=== PATIENT | female | born 1970 | race African-American/Black ===

== ENCOUNTER 2018-01-09 17:10 | Inpatient (IN) | payer SELFPAY ==
[~2018-01-09] VITALS: Ht 157.5 cm; Wt 84.8 kg
[2018-01-09 21:22] VITALS: BP 115/72; PULSE 63; RESP 18; TEMP 97; O2SAT 97
[2018-01-10 06:06] VITALS: BP 117/61; PULSE 67; RESP 18; TEMP 97.8; O2SAT 96
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
[2018-01-10] MEDS ORDERED: RESP: ALBUTEROL 2.5 MG/IPRATROPIUM 0.5 MG NEB (PRN) NEB (14:00)
[2018-01-10] MEDS ORDERED: ALUMINUM/MAGNESIUM/SIMETH 30 ML CUP PO PRN (14:30)
[2018-01-10] MEDS ORDERED: ACETAMINOPHEN 325 MG TAB PO PRN (14:30)
[2018-01-10] MEDS ORDERED: LORazepam 2 MG/ML VIAL IM PRN (14:30)
[2018-01-10] MEDS: buPROPion HCL 100 MG SUSTAINED RELEASE TAB PO SCH ×2 (14:30→21:33)
[2018-01-10] MEDS ORDERED: MAGNESIUM HYDROXIDE SUSP 30 ML CUP PO PRN (14:30)
[2018-01-10] MEDS: OLANZapine 5 MG TAB PO SCH ×2 (14:54→21:00)
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
[2018-01-10 17:34] VITALS: BP 95/60; PULSE 65; RESP 17; TEMP 96.8; O2SAT 99
[2018-01-11 06:05] VITALS: BP 121/82; PULSE 70; RESP 18; TEMP 96.5; O2SAT 99
[2018-01-11] MEDS: OLANZapine 5 MG TAB PO SCH ×2 (08:29→20:26)
[2018-01-11] MEDS: NICOTINE 21 MG/24 HR PATCH T-DERMAL SCH (08:29)
[2018-01-11] MEDS: REMOVE OLD PATCH T-DERMAL SCH (08:29)
[2018-01-11] MEDS: buPROPion HCL 150 MG SUSTAINED RELEASE TAB PO SCH ×3 (08:29→20:33)
[2018-01-11 09:06] LABS: BICARBONATE 26.6 MEQ/L (21.0-32.0); BLOOD UREA NITROGEN 12 MG/DL (7-18); CALCIUM 9.3 MG/DL (8.5-10.1); CHLORIDE 107 MEQ/L (98-107); CREATININE 1.14 MG/DL (0.50-1.00); GLOMERULAR FILTRATION RATE 62 ML/MIN (>89); GLUCOSE,RANDOM 103 MG/DL (74-106); SODIUM (NA) 139 MEQ/L (136-145)
[2018-01-11 09:07] LABS: CHOLESTEROL 148 MG/DL (120-200)
[2018-01-11 09:16] LABS: CHOLESTEROL/ HDL RATIO 4.45 RATIO; HDL CHOLESTEROL 33.2 MG/DL (40.0-60.0); LDL CHOLESTEROL 100 MG/DL (0-99); TRIGLYCERIDES 75 MG/DL (42-150)
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
[2018-01-11 15:16] LABS: HEMOGLOBIN A1C 5.1 % (4.3-6.0)
--- NOTE | 2018-01-11 16:24 | RADRPT ---
EXAM DATE/TIME: 01/11/2018 15:01 [facility] COMPARISON: No previous studies available for comparison. INDICATIONS : Left shoulder pain, unknown injury. MEDICAL HISTORY : None. SURGICAL HISTORY : None. ENCOUNTER: Initial ACUITY: 1 day PAIN SCORE: 10/10 LOCATION: Left shoulder. FINDINGS: Two view examination of the left shoulder demonstrates no evidence of fracture or dislocation. The g lenohumeral and acromioclavicular joints are maintained. Bony mineralization is normal. CONCLUSION: No acute disease. Jonny Gant MD on January 11, 2018 at 16:21 Board Certified Radiologist. This report was verified electronically.
--- NOTE | 2018-01-11 16:33 | RADRPT ---
EXAM DATE/TIME: 01/11/2018 15:02 [facility] COMPARISON: No previous studies available for comparison. INDICATIONS : Right shoulder pain, unknown injury. MEDICAL HISTORY : None. SURGICAL HISTORY : None. ENCOUNTER: Initial ACUITY: 1 day PAIN SCORE: 10/10 LOCATION: Right shoulder. FINDINGS: Two view examination of the right shoulder demonstrates no evidence of fracture or dislocation. The glenohumeral and acromioclavicular joints are maintained. Bony mineralization is normal. CONCLUSION: No acute disease. Jonny Gant MD on January 11, 2018 at 16:30 Board Certified Radiologist. This report was verified electronically.
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
[2018-01-11 18:34] LABS: BACTERIA, URINE OCC /hpf; BILIRUBIN, URINE NEG (NEG); BLOOD, URINE NEG (NEG); GLUCOSE,URINE NEG (NEG); KETONE, URINE NEG (NEG); NITRITE,URINE NEG (NEG); SQUAMOUS EPITHELIAL CELL URINE 5 /hpf (0-5); URINE COLOR LIGHT-YELLOW (YELLW/STRAW); URINE LEUKOCYTE ESTERASE NEG (NEG)
--- NOTE | 2018-01-11 19:47 | EKG ---
Date Performed: 01/10/2018 Time Performed: 16:09:31 PTAGE: 47 years EKG: SINUS BRADYCARDIA NONSPECIFIC T-WAVE CHANGES PRESENT BORDERLINE ECG NO PREVIOUS TRACING DOCTOR: Andi Nicholas Interpretating Date/Time 01/11/2018 19:46:36
[2018-01-11] MEDS ORDERED: OLANZapine IM 10 MG VIAL IM ONE (21:25)
[2018-01-12 06:13] VITALS: BP 118/65; PULSE 75; RESP 18; TEMP 96; O2SAT 96
[2018-01-12] MEDS: OLANZapine 5 MG TAB PO SCH (08:43)
[2018-01-12 08:56] LABS: BICARBONATE 27.8 MEQ/L (21.0-32.0); CALCIUM 9.6 MG/DL (8.5-10.1); CREATININE 1.16 MG/DL (0.50-1.00)
[2018-01-12] MEDS: NICOTINE 21 MG/24 HR PATCH T-DERMAL SCH (09:00)
[2018-01-12] MEDS: REMOVE OLD PATCH T-DERMAL SCH (09:00)
--- NOTE | 2018-01-12 10:30 | HHI.PR ---
Subjective Remarks Follow up on patient with asthma, suprapubic discomfort. Patient seen and examined. Patient reports that she feels well today. She continues to have some lower abdominal discomfort but it is improved. She denies any fever or chills. She denies any chest pain or shortness of breath. Denies any nausea or vomiting. She is tolerating oral diet. Discussed with patient her slightly other creatinine level. She denies any known history of kidney disease. She denies any history of diabetes. She does complain of some lower back pain when sleeping at night and is requesting NSAIDs. I discussed with her avoidance of NSAIDs with impaired kidney function. Patient is requesting vitamin D level drawn due to strong FMHX of osteopenia/osteoporosis. Objective Vitals Vital Signs Date Time Temp Pulse Resp B/P (MAP) Pulse Ox O2 Delivery O2 Flow Rate FiO2 01/12/18 06:13 96.0 75 18 118/65 (82) 96 Result Diagram: 01/12/18 0748 Imaging Last Impressions Shoulder X-Ray 01/11/18 0000 Signed Impressions: Service Date/Time: December 15:01 - CONCLUSION: No acute disease. Jonny Gant MD Objective Remarks GENERAL: This is a well-nourished, well-developed female patient, in no apparent distress. Awake and alert. Witnessed ambulating in the unit. Appears comfortable. SKIN: Cool and dry. No rash. HEAD: Atraumatic. Normocephalic. EYES: Pupils equal round and reactive. Extraocular motions intact. No scleral icterus. No injection or drainage. ENT: Nose without bleeding or purulent drainage. Airway patent. Dry mucus membranes NECK: Trachea midline. Supple. No CARDIOVASCULAR: Regular rate and rhythm without murmurs, gallops, or rubs. RESPIRATORY: Clear to auscultation. Breath sounds equal bilaterally. No wheezes , rales, or rhonchi. GASTROINTESTINAL: Abdomen soft, nondistended. No guarding. Mild suprapubic tenderness to palpation. MUSCULOSKELETAL: Extremities without clubbing or cyanosis. Trace bilateral lower extremity edema. (+)Mild tenderness to palpation over bilateral shoulder/ upper arm with decreased ROM. Neg impingement signs. NEUROLOGICAL: Awake and alert. Cranial nerves II through XII grossly intact. Motor and sensory grossly within normal limits. No focal neurologic finding appreciated. Normal speech. PSYCHIATRIC: Calm and cooperative. Medications and IVs Current Medications Medications (Trade) Dose Ordered Sig/Dale Route Start Time Stop Time Status Last Admin (Duoneb Neb) 1 ampule Q2HR NEB PRN NEB 01/10/18 14:00 (Ativan) 1 mg Q6H PRN PO 01/10/18 14:30 (Ativan Inj) 1 mg Q6H PRN IM 01/10/18 14:30 (Benadryl) 50 mg HS PRN PO 01/10/18 21:00 (Tylenol) 650 mg Q4H PRN PO 01/10/18 14:30 (Milk Of Magnesia Liq) 30 ml DAILY PRN PO 01/10/18 14:30 (Mag-Al Plus Susp Liq) 30 ml Q6H PRN PO 01/10/18 14:30 (Habitrol 21 Mg Patch.24 Hr) 1 patch DAILY T-DERMAL 01/11/18 09:00 Miscellaneous Information 1 DAILY T-DERMAL 01/11/18 09:00 (ZyPREXA) 5 mg Q12HR PO 01/10/18 14:30 01/12/18 08:43 (Wellbutrin Sr) 150 mg BID PO 01/11/18 09:00 01/11/18 20:26 A/P Assessment and Plan 47-year-old -[place] female with a past medical history significant for asthma, hypothyroidism, schizoaffective disorder, depression and anxiety who was transferred to [facility] inpatient psychiatric unit from another facility for paranoia, disorganized thoughts and delusional thinking. Hospitalist services have been consulted to assist in medical management of medical condition. Schizoaffective disorder Anxiety Depression, symptomatic -Management per psychiatric team Asthma, not in acute exacerbation Nonsmoker -Duonebs prn -monitor Nausea Suprapubic discomfort Dysuria Patient reports improvement -UA unremarkable -monitor Hypothyroidism -TSH 1.530 off of thyroid replacement C/O dizziness upon standing -suspect orthostatic hypotension -orthostatic BP measurements ordered, not done - requested nursing staff please complete and record in EMR -Discussed with patient slow transitions -fall precautions Bilateral shoulder/upper arm pain s/p fall -PT eval/tx -discharged from PT without any needs identified -imaging studies bilateral shoulders negative for any acute fracture or other osseous abnormality, images reviewed by me ?JOHN on ?CKD -no lab for comparison -suspect JOHN due to dehydration/poor oral intake -creatinine 1.14 -> 1.16 -patient is not diabetic, A1c 5.1 -continue to encourage fluids -avoid nephrotoxic agents, avoidance of NSAIDS -Renal US ordered, urine Na and urine Cr -monitor renal indices FMHX of osteoporosis -Obtain vitamin D level Back pain -Avoidance of NSAIDs secondary to impaired kidney fxn -Offered tramadol but patient declined due to dizziness -Tylenol as needed DVT prophylaxis -patient is ambulatory Roz Mednoza Jan 12, 2018 10:30
[2018-01-12] MEDS ORDERED: ACETAMINOPHEN 325 MG TAB PO PRN (11:00)
[2018-01-12 11:30] VITALS: BP_SYST 113; BP_SYST 116; BP_SYST 120; BP_DIAS 64; BP_DIAS 66; BP_DIAS 72; PULSE 63; PULSE 70; PULSE 72
--- NOTE | 2018-01-12 11:41 | RADRPT ---
EXAM DATE/TIME: 01/12/2018 10:11 [facility] COMPARISON: No previous studies available for comparison. INDICATIONS : Increased BUN and Creatinine. MEDICAL HISTORY : Ulcers. Gastroesophageal reflux disease. Schizoaffective disorder. SURGICAL HISTORY : None. ENCOUNTER: Initial ACUITY: 1 day PAIN SCORE: 0/10 LOCATION: Bilateral flank MEASUREMENTS: RIGHT KIDNEY: 9.6 x 4.8 x 4.5 cm LEFT KIDNEY: 9.2 x 5.5 x 5.6 cm FINDINGS: RIGHT KIDNEY: Renal cortex is normal in thickness and echotexture. No hydronephrosis, stone, or mass. LEFT KIDNEY: Renal cortex is normal in thickness and echotexture. No hydronephrosis, stone, or mass. BLADDER: Within normal limits given the degree of distension. CONCLUSION: Normal renal ultrasound Kashif Montes De Oca MD FACR on January 12, 2018 at 11:38 Board Certified Radiologist. This report was verified electronically.
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
[2018-01-12] MEDS: LORazepam 1 MG TAB PO PRN (18:00)
[2018-01-12 18:17] VITALS: BP 113/66; PULSE 63; RESP 14; TEMP 97.9; O2SAT 96
[2018-01-12] MEDS: OLANZapine 10 MG TAB PO SCH (20:47)
[2018-01-12] MEDS: buPROPion HCL 150 MG SUSTAINED RELEASE TAB PO SCH (20:47)
[2018-01-12] MEDS: diphenhydrAMINE HCL 50 MG CAP PO PRN (20:48)
[2018-01-13 06:00] VITALS: BP 102/61; PULSE 63; RESP 18; TEMP 98.6; O2SAT 97
[2018-01-13] MEDS: buPROPion HCL 150 MG SUSTAINED RELEASE TAB PO SCH ×2 (09:00→20:09)
[2018-01-13] MEDS: REMOVE OLD PATCH T-DERMAL SCH (09:00)
[2018-01-13] MEDS: NICOTINE 21 MG/24 HR PATCH T-DERMAL SCH (09:00)
[2018-01-13] MEDS ORDERED: OLANZapine 5 MG TAB PO SCH (09:00)
--- NOTE | 2018-01-13 09:29 | HHI.PYPN ---
Subjective Remarks The patient was seen today for psychiatric reevaluation along with Ms. Alyson Bertrand, the patient continues to be delusional, stating that she is and she needs to have a test and ultrasound today, she says that she has a 7 month and even though the test has been negative she is convinced she is . She is also very paranoid, and stating that nurses has been talking about her boyfriend. However, she is calm and cooperative, at times pleasant. She denies suicidal and was ideation, she denies peaceful and auditory hallucinations. She has been compliant with her medications, no significant side effects reported. As per nurse report, the patient sometimes become kind of disorganized, is stating that she wants to speak with her voice at 3 AM in the morning. Review of Systems Except as stated in HPI: all other systems reviewed are Neg Mental Status Examination Appearance: Appropriate Consciousness: Alert Orientation: Person, Place, Date/Time Motor Activity: Normal gait Speech: Unremarkable Language: Adequate Fund of Knowledge: Inadequate Attention and Concentration: Inadequate Memory: Impaired (surrounding events prior admission) Mood: Other ("weird") Affect: Blunt Thought Process & Associations: Disorganized (at times) Thought Content: Hallucinations, Other (concrete) Hallucination Type: Auditory Delusion Type: Paranoid, Somatic (of being ) Suicidal Ideation: No Suicidal Plan: No Suicidal Intention: No Homicidal Ideation: No Homicidal Plan: No Homicidal Intention: No Insight: Poor Judgment: Poor Results Labs Test 01/13/18 08:35 Vitals/IOs Vital Signs Date Time Temp Pulse Resp B/P (MAP) Pulse Ox O2 Delivery O2 Flow Rate FiO2 01/13/18 06:00 98.6 63 18 102/61 (75) 97 Intake and Output 01/13/18 01/13/18 01/14/18 08:00 16:00 00:00 Intake Total 240 ml Balance 240 ml Assessment & Plan Problem List: (1) Schizoaffective disorder ICD Codes: F25.9 - Schizoaffective disorder, unspecified Assessment & Plan: Patient continues to be delusional, disorganized, very paranoid. We will increase the olanzapine to 10 mg twice daily for psychosis. Assessment & Plan Estimated LOS: days Justification for Cont. Inpt. Patient is acutely psychotic Andrew Deutsch MD Jan 13, 2018 09:29
--- NOTE | 2018-01-13 09:37 | HHI.PR ---
Subjective Remarks Follow up on patient with asthma, suprapubic discomfort. Patient seen and examined. She is asking if she will be discharged today. She denies any new medical complaints. She denies any fever or chills. Denies any chest pain or dyspnea. Denies any N/V or abdominal pain. Objective Vitals Vital Signs Date Time Temp Pulse Resp B/P (MAP) Pulse Ox O2 Delivery O2 Flow Rate FiO2 01/13/18 06:00 98.6 63 18 102/61 (75) 97 01/12/18 18:17 97.9 63 14 113/66 (82) 96 01/12/18 11:30 70 116/64 (81) 01/12/18 11:30 63 113/66 (82) 01/12/18 11:30 72 120/72 (88) I/O 01/12/18 01/12/18 01/12/18 01/13/18 01/13/18 01/13/18 07:00 15:00 23:00 07:00 15:00 23:00 Intake Total 240 ml 360 ml 240 ml Balance 240 ml 360 ml 240 ml Intake Oral 240 ml 360 ml 240 ml # Voids 2 Result Diagram: 01/12/18 0748 Imaging Last Impressions Renal Ultrasound 01/12/18 0000 Signed Impressions: Service Date/Time: Friday, January 12, 2018 10:11 - CONCLUSION: Normal renal ultrasound Kashif Montes De Oca MD FACR Shoulder X-Ray 01/11/18 0000 Signed Impressions: Service Date/Time: December 15:01 - CONCLUSION: No acute disease. Jonny Gant MD Objective Remarks GENERAL: This is a well-nourished, well-developed female patient, in no apparent distress. Awake and alert. Witnessed ambulating in the unit. SKIN: Cool and dry. No rash. HEAD: Atraumatic. Normocephalic. EYES: Pupils equal round and reactive. Extraocular motions intact. No scleral icterus. No injection or drainage. ENT: Nose without bleeding or purulent drainage. Airway patent. MMM. NECK: Trachea midline. CARDIOVASCULAR: Regular rate and rhythm without murmurs, gallops, or rubs. RESPIRATORY: Clear to auscultation. Breath sounds equal bilaterally. No wheezes , rales, or rhonchi. GASTROINTESTINAL: Abdomen soft, nondistended, nontender. No guarding. MUSCULOSKELETAL: Extremities without clubbing or cyanosis. Trace bilateral lower extremity edema. (+)Mild tenderness to palpation over bilateral shoulder/ upper arm with decreased ROM. Neg impingement signs. NEUROLOGICAL: Awake and alert. Cranial nerves II through XII grossly intact. Motor and sensory grossly within normal limits. No focal neurologic finding appreciated. Normal speech. PSYCHIATRIC: Calm and cooperative. Medications and IVs Current Medications Medications (Trade) Dose Ordered Sig/Dale Route Start Time Stop Time Status Last Admin (Duoneb Neb) 1 ampule Q2HR NEB PRN NEB 01/10/18 14:00 (Ativan) 1 mg Q6H PRN PO 01/10/18 14:30 01/12/18 18:00 (Ativan Inj) 1 mg Q6H PRN IM 01/10/18 14:30 (Benadryl) 50 mg HS PRN PO 01/10/18 21:00 01/12/18 20:48 (Milk Of Magnesia Liq) 30 ml DAILY PRN PO 01/10/18 14:30 (Mag-Al Plus Susp Liq) 30 ml Q6H PRN PO 01/10/18 14:30 (Habitrol 21 Mg Patch.24 Hr) 1 patch DAILY T-DERMAL 01/11/18 09:00 Miscellaneous Information 1 DAILY T-DERMAL 01/11/18 09:00 (Wellbutrin Sr) 150 mg BID PO 01/11/18 09:00 01/12/18 20:47 (Tylenol) 650 mg Q4H PRN PO 01/12/18 11:00 (ZyPREXA) 10 mg HS PO 01/12/18 21:00 01/12/18 20:47 (ZyPREXA) 10 mg DAILY PO 01/14/18 09:00 A/P Assessment and Plan 47-year-old -[place] female with a past medical history significant for asthma, hypothyroidism, schizoaffective disorder, depression and anxiety who was transferred to [facility] inpatient psychiatric unit from another facility for paranoia, disorganized thoughts and delusional thinking. Hospitalist services have been consulted to assist in medical management of medical condition. Schizoaffective disorder Anxiety Depression, symptomatic -Management per psychiatric team Asthma, not in acute exacerbation Nonsmoker -Duonebs prn -monitor Hypothyroidism -TSH 1.530 off of thyroid replacement therapy C/O dizziness upon standing -orthostatics negative -no complaints of dizziness today -Discussed with patient slow transitions -fall precautions Bilateral shoulder/upper arm pain s/p fall -PT eval/tx -discharged from PT without any needs identified -imaging studies bilateral shoulders negative for any acute fracture or other osseous abnormality, images reviewed by me ?JOHN on ?CKD -no lab for comparison -suspect JOHN due to dehydration/poor oral intake -creatinine 1.14 -> 1.16 -patient is not diabetic, A1c 5.1 -continue to encourage fluids -avoid nephrotoxic agents, avoidance of NSAIDS -Renal US unremarkable -monitor renal indices, repeat creatinine for today if same or trending down , recommend follow up with PCP as outpatient FMHX of osteoporosis -Vitamin D level 34.1 Back pain -Avoidance of NSAIDs secondary to impaired kidney fxn -Offered tramadol but patient declined due to dizziness -Tylenol as needed DVT prophylaxis -patient is ambulatory Discussed with patient, Edy CALLOWAY and Dr. Deutsch Patient has no acute medical issues at this time and can be discharged from a hospitalist standpoint. Will sign off for now. Please reconsult if needed. Roz Mendoza Jan 13, 2018 09:37
[2018-01-13 10:09] LABS: CREATININE 1.23 MG/DL (0.50-1.00)
[2018-01-13 15:47] VITALS: BP 116/63; PULSE 72; RESP 18; TEMP 97.8; O2SAT 99
[2018-01-13 16:46] LABS: CREATININE, RANDOM URINE 233.7 MG/DL
[2018-01-13] MEDS: OLANZapine 10 MG TAB PO SCH (20:09)
[2018-01-13] MEDS: diphenhydrAMINE HCL 50 MG CAP PO PRN (20:09)
[2018-01-13 21:00] VITALS: BP_SYST 116; BP_SYST 118; BP_SYST 124; BP_DIAS 71; BP_DIAS 72; BP_DIAS 74; PULSE 60
[2018-01-14 06:53] VITALS: BP 112/65; PULSE 62; RESP 16; TEMP 97.8; O2SAT 98
[2018-01-14] MEDS: NICOTINE 21 MG/24 HR PATCH T-DERMAL SCH (09:00)
[2018-01-14] MEDS: REMOVE OLD PATCH T-DERMAL SCH (09:00)
[2018-01-14] MEDS: OLANZapine 10 MG TAB PO SCH ×2 (10:04→20:39)
[2018-01-14] MEDS: buPROPion HCL 150 MG SUSTAINED RELEASE TAB PO SCH ×2 (10:04→20:39)
[2018-01-14 10:15] LABS: BICARBONATE 27.2 MEQ/L (21.0-32.0); CALCIUM 8.9 MG/DL (8.5-10.1); CREATININE 1.19 MG/DL (0.50-1.00)
--- NOTE | 2018-01-14 13:40 | HHI.PYPN ---
Subjective Remarks Patient was seen today for psychiatric reevaluation, she is calm and cooperative. Continues to be delusional about being . But, out of the context of her delusion, she is a pleasant person who can have a logical, coherent and relevant conversation. She is oriented 3. Compliant with her medications, no significant side effects Mental Status Examination Appearance: Appropriate Consciousness: Alert Orientation: Person, Place, Date/Time Motor Activity: Normal gait Speech: Unremarkable Language: Adequate Fund of Knowledge: Inadequate Attention and Concentration: Inadequate Memory: Impaired (surrounding events prior admission) Mood: Other ("weird") Affect: Blunt Thought Process & Associations: Disorganized (at times) Thought Content: Hallucinations, Other (concrete) Hallucination Type: Auditory Delusion Type: Paranoid, Somatic (of being ) Suicidal Ideation: No Suicidal Plan: No Suicidal Intention: No Homicidal Ideation: No Homicidal Plan: No Homicidal Intention: No Insight: Poor Judgment: Poor Results Labs Test 01/13/18 16:07 01/14/18 09:25 Urine Random Creatinine 233.7 MG/DL Urine Random Sodium 53 MEQ/L Blood Urea Nitrogen 10 MG/DL Creatinine 1.19 MG/DL Random Glucose 102 MG/DL Calcium Level 8.9 MG/DL Sodium Level 142 MEQ/L Potassium Level 4.3 MEQ/L Chloride Level 108 MEQ/L Carbon Dioxide Level 27.2 MEQ/L Anion Gap 7 MEQ/L Estimat Glomerular Filtration Rate 59 ML/MIN Vitals/IOs Vital Signs Date Time Temp Pulse Resp B/P (MAP) Pulse Ox O2 Delivery O2 Flow Rate FiO2 01/14/18 06:53 97.8 62 16 112/65 (81) 98 Intake and Output 01/14/18 01/14/18 01/15/18 08:00 16:00 00:00 Intake Total 240 ml Balance 240 ml Assessment & Plan Problem List: (1) Schizoaffective disorder ICD Codes: F25.9 - Schizoaffective disorder, unspecified Assessment & Plan: Continue current psychotropic regimen. Assessment & Plan Estimated LOS: days Justification for Cont. Inpt. Patient continues to be acutely psychotic. Andrew Deutsch MD Jan 14, 2018 13:40
[2018-01-14 17:47] VITALS: BP 129/79; PULSE 80; RESP 16; TEMP 97.4; O2SAT 98
[2018-01-14] MEDS: diphenhydrAMINE HCL 50 MG CAP PO PRN (20:39)
[2018-01-14] MEDS: LORazepam 1 MG TAB PO PRN (20:39)
[2018-01-15 05:04] VITALS: BP 98/53; PULSE 56; RESP 17; TEMP 97.8; O2SAT 96
[2018-01-15] MEDS: buPROPion HCL 150 MG SUSTAINED RELEASE TAB PO SCH ×2 (08:05→20:37)
[2018-01-15] MEDS: LORazepam 1 MG TAB PO PRN (08:05)
[2018-01-15] MEDS: OLANZapine 10 MG TAB PO SCH ×2 (08:05→20:37)
[2018-01-15] MEDS: REMOVE OLD PATCH T-DERMAL SCH (09:00)
[2018-01-15] MEDS: NICOTINE 21 MG/24 HR PATCH T-DERMAL SCH (09:00)
--- NOTE | 2018-01-15 14:05 | PD.TTN ---
Patient Problems 1. Discharge planning 2. Medication compliance 3. Knowledge deficit 4. Lack of coping skills Progress Toward Goals Provider Present: Dr. Kari Thompson Provider Input: 01/15/2018; patient's medication are being adjusted Nurse(s) Present: RN Nurse(s) Input: 01/15/2018; patient has displayed no major behavior, eating meals, and taking her medication, some paranoid suspicious mood. Psychiatric Counselors Present: RAFAEL Retana Psych Therapist Input: 01/15/2018; counselor will contact family to discuss dc planning Group Spec/RT/OT/MINER Present: Salo Dorantes OT Group Spec/RT/OT/MINER Input: 01/15/2018; patient participate with groups and activities Documentation Scribe: Deedee Frias Jan 15, 2018 14:05
--- NOTE | 2018-01-15 17:16 | HHI.PYPN ---
Subjective Remarks Patient seen for follow, chart reviewed. Discussion nursing staff reported the patient continues to believe she is , has had poor sleep over the past 2 days. Patient was found sitting in hospital bed involved in coloring activity. Patient states that she has been having difficulty with sleep lately , patient appearing to be tired physically. Patient states that she still thinks she is due to her current symptoms of feeling dizzy when she walks and headaches but denying any nausea or vomiting. Patient denies any perceptional services at this time. Treatment team restart the patient's family who stated the patient cannot return to live with the mother nor the father and phone call with therapist the patient together to godmother stated that she cannot return to either. Review of Systems Except as stated in HPI: all other systems reviewed are Neg Mental Status Examination Appearance: Appropriate Consciousness: Alert Orientation: Person, Place, Date/Time Motor Activity: Normal gait Speech: Unremarkable Language: Adequate Fund of Knowledge: Inadequate Attention and Concentration: Inadequate Memory: Impaired (surrounding events prior admission) Mood: Other ("weird") Affect: Blunt Thought Process & Associations: Other ([place]) Thought Content: Hallucinations, Delusional, Other (concrete) Hallucination Type: Auditory Delusion Type: Paranoid, Somatic (of being ) Suicidal Ideation: No Suicidal Plan: No Suicidal Intention: No Homicidal Ideation: No Homicidal Plan: No Homicidal Intention: No Insight: Poor Judgment: Poor Results Labs Labs reviewed Test 01/15/18 15:05 Human Chorionic Gonadotropin, Quant LESS THAN 1 MIU/ML Vitals/IOs Vital Signs Date Time Temp Pulse Resp B/P (MAP) Pulse Ox O2 Delivery O2 Flow Rate FiO2 01/15/18 05:04 97.8 56 17 98/53 (68) 96 Intake and Output 01/15/18 01/15/18 01/16/18 08:00 16:00 00:00 Intake Total 240 ml 480 ml Balance 240 ml 480 ml Assessment & Plan Problem List: (1) Schizoaffective disorder ICD Codes: F25.9 - Schizoaffective disorder, unspecified Assessment & Plan Patient this time noted to have continue believe that she is , poor sleep for the past 2 days but denying any perceptual disturbances. Beta hCG was ordered which was negative, we will discontinue diphenhydramine and start trazodone 50 mg at bedtime for sleep disturbance. Continue rest of medications. Continue monitor mood and behavior. Patient possibly may be able to be discharged when stable to a program for patients with mental health and or substance use issues. We will address this possibility with patient tomorrow. Discharge planning in progress. Justification for Cont. Inpt. At risk for further decompensation if at lower level of care Kieran Thompson MD Jan 15, 2018 17:16
[2018-01-15 18:00] VITALS: BP 124/58; PULSE 80; RESP 18; TEMP 97.9; O2SAT 98
[2018-01-15] MEDS ORDERED: traZODone HCL 50 MG TAB PO SCH (21:00)
[2018-01-16 05:50] VITALS: BP 105/55; PULSE 76; RESP 18; TEMP 97.6; O2SAT 76
[2018-01-16] MEDS ORDERED: TRAZ50TA12 PO (08:13)
[2018-01-16] MEDS ORDERED: OLAN10TA PO (08:13)
[2018-01-16] MEDS ORDERED: BUPR150CR PO (08:13)
[2018-01-16] MEDS: NICOTINE 21 MG/24 HR PATCH T-DERMAL SCH (09:00)
[2018-01-16] MEDS: OLANZapine 10 MG TAB PO SCH (09:00)
[2018-01-16] MEDS: REMOVE OLD PATCH T-DERMAL SCH (09:00)
[2018-01-16] MEDS: buPROPion HCL 150 MG SUSTAINED RELEASE TAB PO SCH (09:00)
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
== END 2018-01-16 12:40 | disposition home or self-care (01) | DRG 885 ==
LOC: H270 17:46 → UNDOADMIN 17:46 → H270 20:40 → H4EA 01-12 09:40 → H260 01-13 12:30 → H4EA 01-14 10:15
PROVIDERS: ADMIT Student in an Organized Health Care Education/Training Program; ATTEND Student in an Organized Health Care Education/Training Program
DX: F33.3 Major depressive disorder, recurrent, severe with psychotic symptoms (principal); E03.9 Hypothyroidism, unspecified; J45.909 Unspecified asthma, uncomplicated; E86.0 Dehydration; R30.0 Dysuria; M54.9 Dorsalgia, unspecified; F43.22 Adjustment disorder with anxiety; M79.622 Pain in left upper arm; M25.512 Pain in left shoulder; I95.1 Orthostatic hypotension; M25.511 Pain in right shoulder; K58.9 Irritable bowel syndrome, unspecified; M79.621 Pain in right upper arm; Z88.0 Allergy status to penicillin; Z88.2 Allergy status to sulfonamides; Z91.5 Personal history of self-harm; Z91.81 History of falling
CPT/HCPCS: 73030; 76775; 80048; 80061; 81001; 82306; 82565; 82570; 83036; 84300; 84443; 84702; 93005; 94664; Q0163